=== PATIENT | female | born 2005 | race Caucasian/White ===

== ENCOUNTER 2025-03-14 17:29 | Emergency (ER) | payer BC, SELFPAY ==
[2025-03-14 17:32] VITALS: BP 145/108
--- NOTE | 2025-03-14 19:56 | ED.GENMED ---
History of Present Illness
General
Chief Complaint: Skin Problem
Source: patient
Exam Limitations: none
Time Seen by Provider: 03/14/25 19:29
Nursing documentation reviewed up to this point in time: agreed with
History of Present Illness
History of Present Illness:
see MDM
Phy Exam
Physical Exam
Physical Exam:
see MDM
Course
Orders/Labs/Results
Orders:
Orders
03/14/25 19:59
Ampicillin/Sulbactam 3 G [Unasyn] 3 gm 0.9% Sodium Chloride 100 ml [Nss] 100 ml IV NOW
03/14/25 20:16
Complete Blood Count/With Diff Urgent
Comprehensive Metabolic Panel Urgent
Abnormal Lab Results
03/14/25
20:16
WBC 13.1 H 10^3/uL
(4.8-10.8)
MCV 75.8 L fL
(81.0-99.0)
MCH 24.4 L pg
(27.0-31.0)
MCHC 32.2 L g/dL
(33.0-37.0)
RDW 14.8 H %
(11.5-14.5)
Absolute Neuts (auto) 10.9 H 10^3/uL
(1.4-6.5)
Neutrophils % 83.8 H %
(42.2-75.2)
Lymphocytes % 10.9 L %
(20.5-51.1)
Glucose 105 H mg/dl
(70-99)
Total Protein 8.7 H g/dl
(6.3-8.2)
Albumin 5.3 H g/dl
(3.5-5.0)
03/14/25 20:16
03/14/25 20:16
Vital Signs
Pulse: 110
Blood pressure: 135/85
Initial and Last Documented VS:
Initial Vital Signs
Temp Pulse Resp BP Pulse Ox
36.8 C 138 15 145/108 100
03/14/25 17:32 03/14/25 17:32 03/14/25 17:32 03/14/25 17:32 03/14/25 17:32
Last Documented Vital Signs
Temp Pulse Resp BP Pulse Ox
36.8 C 126 18 163/83 100
03/14/25 17:32 03/14/25 20:17 03/14/25 20:07 03/14/25 20:07 03/14/25 20:07
Procedures
Incision/Drainage/Joint Aspiration
Left Fourth Finger(s):
Anethesia: 1% Lidocaine
Preparation: cleaned with Betadine
Type of procedure: drain
Nature of site: other (paronchia)
Loculations broken up: No
How much fluid was obtained?: scant amount
Fluid description: bloody
Treatment: antibiotics started and bandaid applied
MDM/Problems Addressed
Differential Diagnosis Includes:
see MDM
MDM/Problems Addressed:
Note:
CHIEF COMPLAINT(S)
Infection on the hand.
HISTORY OF PRESENT ILLNESS
The patient is a 20-year-old female who presents from for finger infection with streak up her L arm
she bit a hang nail from L 4th finger yesterday and today started with pain and swellin around the nail fold. then later noticed some streakin redness up her arm
she has mild L forearm discomfort
no systemic symptoms
not diabetic
no fever
PHYSICAL EXAM
GENERAL: Alert , in no apparent distress, mildly anxious
EYE: pupils equal and reactive
NECK: Supple
ENT: o/p clr, mmm.
CARDIAC tachycardia
LUNGS: Clear breath sounds bilaterally, no acute respiratory distress, no wheezes/rales/rhonchi
ABDOMEN: Soft, without focal tenderness, no r/g, no cvat, normal bowel sounds
NEUROLOGICAL: Alert and oriented, no focal neuro deficits
SKIN: Warm and dry, skin intact.
MUSCULOSKELETAL: Left fourth finger proximal nail fold with erythema, some thickening and swelling with tenderness, fat pad is in tact and normal, there is no significant finger swelling, able to range the finger normally, there is a streak of
erythema that goes from the wrist proximally to the elbow and a torturous type of fashion that seems like a lymphatic spread
PSYCH: Normal and appropriate interaction.
- Nursing notes reviewed and vital signs reviewed.
PROBLEM LIST
Acute:
- Hand infection with signs of lymphatic spread.
PLAN
- Initiate an intravenous dose of antibiotics.
- Send the patient home with oral antibiotics.
- Draw a line around the infected area to monitor changes.
- Instruct the patient to return if symptoms worsen or fever develops.
DIFFERENTIAL DIAGNOSIS
The Differential Diagnosis includes, in no particular order and is not limited to:
1. Cellulitis
2. Lymphangitis
3. Paronychia
4. Felon
5. Herpetic claudia
6. Abscess formation
7. Bacterial skin infection
8. Soft tissue infection
9. Contact dermatitis
10. Fungal infection
20-year-old female says that she bites her fingernails and bit her left middle finger nail yesterday, woke up this morning and the proximal nail fold was red with some tenderness. It was not draining at all. Throughout the day she noticed that
there is a streak of redness that is evident on her left dorsal forearm. She has not had any fevers or chills. She is tachycardic however she says she gets whitecoat syndrome this is very common for her. She is afebrile and well-appearing and has
no history of diabetes. On exam she has some thickening and erythema to the proximal nail fold without any obvious collection, there is no felon, full range of motion of the finger, there is a very faint irregular streak to the left hand, extending
into the wrist and forearm. It is not limiting her range of motion, she has no significant tenderness here. It stops just proximal to her elbow. There are no obvious lymph nodes in her axilla.
Given her state of health felt that it was reasonable to give her an IV dose of antibiotics, attempt I&D and allow for trial of outpatient antibiotics. Case discussed with ED attending who agreed we will cover her with Augmentin
*Pulse Oximetry
SaO2: 100
Oxygen Mode of Delivery: Room air
Patient hypoxic: no (100)
*Critical Care Note
Total Time (30-74mins, 75-104mins- exclusive of procedures): Not Applicable
ED Attending Note
-
Portions of this chart may have been created with voice recognition software.� Occasional wrong word or��sound alike� substitutions may have occurred due to the inherent limitations of voice recognition software.
Discharge Plan
Departure
Patient Disposition: Home (Routine Discharge)
Date of Disposition: 03/14/25
Time of Disposition: 22:32
Patient with high blood pressure during this ER visit?: No
Condition: Fair
Discharge Problem:
Paronychia, Lymphangitis
Instructions: Paronychia - ED (DC)
Prescriptions:
New
amoxicillin-pot clavulanate 875-125 mg tablet
1 tab PO BID Qty: 14 0RF
Referrals:
NONE,* [Family Provider, Internal Medicine]
Stand Alone Forms: Return to Work
Activity Restrictions/Additional Instructions:
Soak your finger in warm water for 10 minutes several times a day. Take Augmentin twice a day starting tomorrow morning. I kelsey a line around the redness, have a low threshold to return to the emergency department for streaking up past the line
drawn, fevers or chills, significant pain, vomiting or il feeling.l otherwise continue the antibiotics until healed. Try not to bite your nails
Interventions
Interventions:
*Risk Screen - Suicide Last Done: 03/14/25 17:32
*General Assessment Last Done: 03/14/25 17:32
*Neglect/Abuse Screening Last Done: 03/14/25 17:32
*ED- Fall Risk Assessment Last Done: 03/14/25 20:15
*ED COVID-19 Vaccine History Last Done: 03/14/25 17:32
*ED Influenza Vaccine History Last Done: 03/14/25 17:32
*Nursing Disposition Last Done: 03/14/25 22:57
ED-Skin Assessment Last Done: 03/14/25 20:15
Discharge Date and Time
Discharge Date/Time: 03/14/25 22:15
Print Language: CYMRO
[2025-03-14 20:07] VITALS: BP 163/83
[2025-03-14] MEDS: UNASYN IV (20:18)
[2025-03-14 20:24] LABS: Hematocrit 40.1 % (37.0-47.0); Hemoglobin 12.9 g/dL (12.0-16.0); Mean Corp Hgb Conc. 32.2 g/dL (33.0-37.0); Mean Corpuscular Volume 75.8 fL (81.0-99.0); Nucleated Red Blood Cells % 0 %; Platelet Count 354 10^3/uL (130-400); Red Cell Dist. Width 14.8 % (11.5-14.5)
[2025-03-14 20:40] LABS: ALT (SGPT) 25 U/L (0-35); AST (SGOT) 22 U/L (14-36); Albumin 5.3 g/dl (3.5-5.0); Alkaline Phosphatase 60 U/L (38-126); Blood Urea Nitrogen 10 mg/dl (7-17); Calcium 10.1 mg/dl (8.4-10.2); Carbon Dioxide 25 mmol/L (22-30); Chloride 103 mmol/L (98-107); Glucose 105 mg/dl (70-99); Potassium 4.1 mmol/L (3.5-5.1); Sodium 138 mmol/L (135-145); Total Protein 8.7 g/dl (6.3-8.2); eGFR > 60.00
== END 2025-03-14 22:15 | disposition home or self-care (01) ==
LOC: EMR 17:29
PROVIDERS: Physician Assistant; EMERGENCY PHYSICIAN Emergency Medicine
DX: L03.022 Acute lymphangitis of left finger (principal)
CPT/HCPCS: 99284; 96365; 10060; 80053; 85025